=== PATIENT | female | born 1980 | race Caucasian/White ===

== ENCOUNTER 2022-09-21 17:09 | Emergency (ER) | payer SELFPAY ==
[2022-09-21] MEDS ORDERED: Ketorolac 30 MG/ML SDV IVPUSH ONE (17:38)
[2022-09-21] MEDS ORDERED: Ondansetron 4 MG/2 ML SDV IVPUSH ONE (17:48)
[2022-09-21 18:39] LABS: CARBON DIOXIDE,CO2 26.3 mmol/L (21.0-32.0); POTASSIUM,K 3.5 mmol/L (3.5-5.1)
[2022-09-21] MEDS ORDERED: cefTRIAXone 1 GM in Sodium Chloride 0.9% 50 ML IV ONE (19:09)
[2022-09-21] MEDS ORDERED: Acetaminophen/HYDROcodone 325-5 MG Tab PO ONE (19:39)
== END 2022-09-21 19:50 | disposition home or self-care (01) ==
LOC: MW.ED 17:09
DX: R10.9 Unspecified abdominal pain (principal)
CPT/HCPCS: 36415; 80048; 81001; 85025; 87086; 87088; 87186; 96374; 96375; 99283; A9270; J0696; J1885; J2405; J3490; 99284

== ENCOUNTER 2022-09-24 13:41 | Emergency (ER) | payer SELFPAY ==
[2022-09-24] MEDS ORDERED: Sodium Chloride 0.9% 1,000 ML IV ONE (14:54)
[2022-09-24] MEDS ORDERED: Ketorolac 30 MG/ML SDV IVPUSH ONE (14:55)
[2022-09-24 15:54] LABS: POTASSIUM,K 3.9 mmol/L (3.5-5.1)
[2022-09-24] MEDS ORDERED: Iopamidol 755 MG/ML 500 ML Multipack Bottle IVPUSH ONE (16:29)
[2022-09-24] MEDS ORDERED: traMADol 50 MG Tab PO ONE (17:05)
[2022-09-24] MEDS ORDERED: Acetaminophen/HYDROcodone 325-5 MG Tab PO ONE (17:26)
== END 2022-09-24 17:35 | disposition home or self-care (01) ==
LOC: MW.ED 13:41
DX: R10.9 Unspecified abdominal pain (principal); F17.210 Nicotine dependence, cigarettes, uncomplicated; Z86.16 Personal history of COVID-19
CPT/HCPCS: 36415; 74178; 80053; 81003; 81025; 85025; 96361; 96374; 99284; A9270; J1885; J7030; Q9967

== ENCOUNTER 2022-09-26 10:17 | Emergency (ER) | payer SELFPAY | END 2022-09-26 12:47 | LOC: MW.ED 10:17 | DX: S60.221A Contusion of right hand, initial encounter (principal); S09.90XA Unspecified injury of head, initial encounter; F10.10 Alcohol abuse, uncomplicated; I10 Essential (primary) hypertension; Z79.899 Other long term (current) drug therapy; Z86.16 Personal history of COVID-19; Z72.0 Tobacco use; Y04.2XXA Assault by strike against or bumped into by another person, initial encounter | CPT/HCPCS: 70450; 70450-26; 73130-26-RT; 73130-RT; 81001; 99283; 99284 ==